=== PATIENT | male | born 1960 | race African-American/Black ===

== ENCOUNTER 2019-03-19 11:25 | Inpatient (IN) | payer MEDICARE, OTHER ==
[~2019-03-19] VITALS: Ht 170.2 cm; Wt 66.7 kg
[2019-03-19] MEDS ORDERED: KETOROLAC 30MG/ML VIAL IV STA (11:44)
[2019-03-19] MEDS ORDERED: SODIUM CHLORIDE 0.9% 1,000 ML IV ONE (11:44)
[2019-03-19] MEDS ORDERED: FAMOTIDINE 20MG/2ML VIAL IV STA (11:44)
[2019-03-19] MEDS ORDERED: ONDANSETRON HCL 4MG/2ML INJ IV STA (11:44)
[2019-03-19 12:19] LABS: BASOPHILS % 0.5 % (0.0-2.0); EOSINOPHILS % 0.6 % (0.0-5.0); HEMATOCRIT. 44.1 % (42.0-52.0); HEMOGLOBIN. 14.8 g/dL (14.0-18.0); MEAN CORPUSCULAR VOLUME 89.2 fL (80.0-94.0); MEAN PLATELET VOLUME 8.8 fl (7.4-10.4); MONOCYTES % 3.6 % (2.0-8.0); NEUTROPHILS % 84.3 % (40.0-76.0); PLATELET 200 x1000/uL (130-400); RED BLOOD CELL COUNT 4.95 mill/uL (4.7-6.1); RED CELL DISTRIBUTION WIDTH 13.4 % (11.6-14.6)
[2019-03-19 12:24] LABS: CHLORIDE 110 mEq/L (98-107)
[2019-03-19 12:25] LABS: PROTHROMBIN TIME 10.7 sec (9.6-11.0)
[2019-03-19] MEDS: SODIUM CHLORIDE 0.9% 1,000 ML IV ONE ×2 (14:32→15:17)
[2019-03-19 15:00] LABS: CLARITY URINE CLEAR (CLEAR); COLOR URINE YELLOW (YELLOW); KETONES URINE NEGATIVE (NEGATIVE); LEUKOCYTE ESTERASE URINE NEGATIVE (NEGATIVE); NITRITE URINE POSITIVE (NEGATIVE); OCCULT BLOOD URINE NEGATIVE (NEGATIVE); PROTEIN URINE 1+ (NEGATIVE)
[2019-03-19] MEDS ORDERED: LEVOFLOXACIN 500MG PREMIX 100 ML IV ONE (15:45)
[2019-03-19] MEDS ORDERED: METRONIDAZOLE 500 MG PREMIX 100 ML IV ONE (15:45)
[2019-03-19] MEDS ORDERED: HYDRALAZINE 20MG/ML VIAL IV PRN (16:45)
[2019-03-19] MEDS ORDERED: KETOROLAC 30MG/ML VIAL IV PRN (16:45)
[2019-03-19] MEDS ORDERED: ONDANSETRON HCL 4MG/2ML INJ IV PRN (16:45)
[2019-03-19] MEDS ORDERED: BLOOD SUGAR DIAGNOSTIC STRIP TEST SCH (17:00)
[2019-03-19] MEDS ORDERED: DEXTROSE 50% WATER 50ML SYRINGE IV PRN (17:00)
[2019-03-19] MEDS ORDERED: ENALAPRIL 1.25 MG in DEXTROSE 5% WATER 49 ML IV PRN (18:45)
[2019-03-19 19:57] VITALS: BP 159/94
[2019-03-19 20:00] VITALS: BP 159/94
[2019-03-19] MEDS: INSULIN LISPRO 100 UNITS/ML SUBCUT SCH (21:00)
[2019-03-19] MEDS: BLOOD SUGAR DIAGNOSTIC STRIP TEST SCH (21:57)
[2019-03-19] MEDS: SODIUM CHLORIDE 0.9% 1,000 ML IV SCH (21:57)
[2019-03-19] MEDS: FAMOTIDINE 20MG/2ML VIAL IV SCH (22:02)
[2019-03-20] VITALS: BP 155/83
[2019-03-20] MEDS ORDERED: HYDRALAZINE 20MG/ML VIAL IV SCH
[2019-03-20] MEDS: HYDRALAZINE 20 MG in SODIUM CHLORIDE 0.9% 49 ML IV SCH ×2 (00:20→05:46)
[2019-03-20] MEDS: METRONIDAZOLE 500 MG PREMIX 100 ML IV SCH ×4 (01:25→22:00)
[2019-03-20 04:00] VITALS: BP 135/81
[2019-03-20] MEDS ORDERED: HYDR100T26 MT (04:54)
[2019-03-20] MEDS ORDERED: INSU100I28 SQ (04:54)
[2019-03-20] MEDS ORDERED: CARV25TA47 MT (04:54)
[2019-03-20] MEDS ORDERED: FURO20TA4 MT (04:54)
[2019-03-20] MEDS ORDERED: AMLO5TAB88 MT (04:54)
[2019-03-20] MEDS ORDERED: INSLIS SUBCUT (04:54)
[2019-03-20] MEDS ORDERED: ATOR40TA70 MT (04:54)
[2019-03-20] MEDS: BLOOD SUGAR DIAGNOSTIC STRIP TEST SCH ×4 (07:20→21:37)
[2019-03-20] MEDS: INSULIN LISPRO 100 UNITS/ML SUBCUT SCH ×4 (07:20→21:00)
[2019-03-20 07:21] LABS: BASOPHILS % 0.5 % (0.0-2.0); EOSINOPHILS % 1.8 % (0.0-5.0); HEMATOCRIT. 42.1 % (42.0-52.0); HEMOGLOBIN. 14.3 g/dL (14.0-18.0); LYMPHOCYTES % 24.2 % (20.0-50.0); MEAN CORPUSCULAR HEMOGLOBIN 30.3 pg (28.0-32.0); MEAN CORPUSCULAR VOLUME 88.9 fL (80.0-94.0); MONOCYTES % 6.5 % (2.0-8.0); PLATELET 199 x1000/uL (130-400); RED BLOOD CELL COUNT 4.73 mill/uL (4.7-6.1); RED CELL DISTRIBUTION WIDTH 13.4 % (11.6-14.6)
[2019-03-20 08:00] VITALS: BP 136/78
[2019-03-20 08:36] LABS: CHLORIDE 113 mEq/L (98-107)
[2019-03-20 08:44] LABS: LDL CHOLESTEROL 55 mg/dL (5-100)
[2019-03-20 08:45] LABS: HDL CHOLESTEROL 59 mg/dL (40-59)
[2019-03-20] MEDS: SODIUM CHLORIDE 0.9% 1,000 ML IV SCH (09:00)
[2019-03-20] MEDS: FAMOTIDINE 20MG/2ML VIAL IV SCH ×2 (09:05→21:59)
[2019-03-20] MEDS ORDERED: DEXT 5%/0.45% NACL KCL 30MEQ/L 1,000 ML IV SCH (11:00)
[2019-03-20 12:00] VITALS: BP 155/94
[2019-03-20] MEDS ORDERED: LEVOFLOXACIN 500MG PREMIX 100 ML IV SCH ×2 (13:00→16:00)
[2019-03-20] MEDS: HYDRALAZINE HCL 25MG TABLET PO SCH ×2 (14:18→22:00)
[2019-03-20 16:00] VITALS: BP 151/96
[2019-03-20 20:00] VITALS: BP 140/66
[2019-03-21] VITALS: BP 151/83
[2019-03-21 04:00] VITALS: BP 148/80
[2019-03-21] MEDS: HYDRALAZINE HCL 25MG TABLET PO SCH (05:43)
[2019-03-21] MEDS: METRONIDAZOLE 500 MG PREMIX 100 ML IV SCH (05:44)
[2019-03-21 06:46] LABS: BASOPHILS % 0.6 % (0.0-2.0); EOSINOPHILS % 2.5 % (0.0-5.0); HEMATOCRIT. 41.1 % (42.0-52.0); HEMOGLOBIN. 14.1 g/dL (14.0-18.0); MEAN CORPUSCULAR HEMOGLOBIN 30.5 pg (28.0-32.0); MEAN CORPUSCULAR VOLUME 88.8 fL (80.0-94.0); MONOCYTES % 6.1 % (2.0-8.0); NEUTROPHILS % 59.8 % (40.0-76.0); PLATELET 194 x1000/uL (130-400); RED BLOOD CELL COUNT 4.62 mill/uL (4.7-6.1); RED CELL DISTRIBUTION WIDTH 13.2 % (11.6-14.6)
[2019-03-21 07:25] LABS: CHLORIDE 108 mEq/L (98-107)
[2019-03-21 08:00] VITALS: BP 126/86
[2019-03-21] MEDS: BLOOD SUGAR DIAGNOSTIC STRIP TEST SCH ×4 (08:16→20:05)
[2019-03-21] MEDS: LOSARTAN POTASSIUM 50 MG TABLET PO SCH (08:35)
[2019-03-21] MEDS: INSULIN LISPRO 100 UNITS/ML SUBCUT SCH ×4 (09:03→20:09)
[2019-03-21] MEDS: INSULIN GLARGINE UD 100 UNITS/ML SYR SUBCUT SCH ×2 (11:03→21:07)
[2019-03-21 12:00] VITALS: BP 161/99
[2019-03-21 16:00] VITALS: BP 145/85
[2019-03-21] MEDS: HYDRALAZINE HCL 50MG TABLET PO SCH (17:33)
[2019-03-21 20:00] VITALS: BP 187/103
[2019-03-21] MEDS: CLONIDINE 0.1MG TABLET PO PRN (21:15)
[2019-03-21] MEDS ORDERED: LOSARTAN POTASSIUM 50 MG TABLET PO NR (22:00)
[2019-03-22] VITALS: BP 143/70
[2019-03-22 04:00] VITALS: BP 137/92
[2019-03-22] MEDS: BLOOD SUGAR DIAGNOSTIC STRIP TEST SCH ×2 (06:32→12:28)
[2019-03-22 07:47] LABS: BASOPHILS % 0.5 % (0.0-2.0); EOSINOPHILS % 3.3 % (0.0-5.0); HEMATOCRIT. 41.1 % (42.0-52.0); HEMOGLOBIN. 14.1 g/dL (14.0-18.0); LYMPHOCYTES % 36.8 % (20.0-50.0); MEAN CORPUSCULAR HEMOGLOBIN 30.5 pg (28.0-32.0); MEAN CORPUSCULAR VOLUME 88.7 fL (80.0-94.0); MEAN PLATELET VOLUME 8.8 fl (7.4-10.4); MONOCYTES % 7.8 % (2.0-8.0); NEUTROPHILS % 51.6 % (40.0-76.0); PLATELET 195 x1000/uL (130-400); RED BLOOD CELL COUNT 4.63 mill/uL (4.7-6.1); RED CELL DISTRIBUTION WIDTH 13.4 % (11.6-14.6)
[2019-03-22] MEDS: INSULIN LISPRO 100 UNITS/ML SUBCUT SCH ×2 (07:50→12:28)
[2019-03-22 07:58] LABS: CHLORIDE 108 mEq/L (98-107)
[2019-03-22 08:00] VITALS: BP 157/93
[2019-03-22] MEDS ORDERED: CARVEDILOL 25MG TABLET PO NR (09:15)
[2019-03-22] MEDS: HYDRALAZINE HCL 50MG TABLET PO SCH (09:18)
[2019-03-22] MEDS: LOSARTAN POTASSIUM 50 MG TABLET PO SCH (09:21)
[2019-03-22] MEDS ORDERED: INSULIN GLARGINE UD 100 UNITS/ML SYR SUBCUT SCH (10:00)
[2019-03-22] MEDS ORDERED: INSU100I28 SQ (11:32)
[2019-03-22 11:35] VITALS: BP 148/98
[2019-03-22] MEDS: CLONIDINE 0.1MG TABLET PO PRN (11:47)
[2019-03-22 12:11] VITALS: BP 150/95
[2019-03-22 15:49] VITALS: BP 122/86
== END 2019-03-22 16:55 | disposition home or self-care (01) | DRG 392 ==
LOC: ER 11:25 → 6EST 15:38 → ENRESERV 17:33 → 6EST 21:30
PROVIDERS: ADMIT Internal Medicine Critical Care Medicine; ATTEND Internal Medicine Critical Care Medicine
DX: K52.9 Noninfective gastroenteritis and colitis, unspecified (principal); R65.10 Systemic inflammatory response syndrome (SIRS) of non-infectious origin without acute organ dysfunction; I69.354 Hemiplegia and hemiparesis following cerebral infarction affecting left non-dominant side; K57.90 Diverticulosis of intestine, part unspecified, without perforation or abscess without bleeding; E11.65 Type 2 diabetes mellitus with hyperglycemia; I11.9 Hypertensive heart disease without heart failure; E78.5 Hyperlipidemia, unspecified; Z79.4 Long term (current) use of insulin; Z87.891 Personal history of nicotine dependence; Z91.81 History of falling; Z79.899 Other long term (current) drug therapy
CPT/HCPCS: 36415; 74176; 80048; 80061; 82962; 83036; 96374; 96375; 97112; 97116; 97162; 99285; J0360; J1815; J1885; J1956; J2405; J3480; J3490; J7030

== ENCOUNTER 2022-06-27 01:26 | Inpatient (IN) | payer BC, MEDICAID, MEDICARE, OTHER ==
[2022-06-27] VITALS (8 sets, daily range): BP systolic 141–169; BP diastolic 91–114
[~2022-06-27] VITALS: Ht 170.2 cm; Wt 68.1 kg
[~2022-06-27 01:26] MED LIST: CARV25TA47 MT; HYDR100T26 MT; INSLIS SUBCUT; INSU100I28 SQ
[2022-06-27 02:05] LABS: BASOPHILS % 0.5 % (0.0-2.0); EOSINOPHILS % 2.7 % (0.0-5.0); HEMATOCRIT. 50.7 % (42.0-52.0); HEMOGLOBIN. 16.6 g/dL (14.0-18.0); LYMPHOCYTES % 25.9 % (20.0-50.0); MEAN CORPUSCULAR HEMOGLOBIN 28.6 pg (28.0-32.0); MEAN PLATELET VOLUME 8.4 fl (7.4-10.4); MONOCYTES % 6.1 % (2.0-8.0); NEUTROPHILS % 64.8 % (40.0-76.0); PLATELET 346 x1000/uL (130-400); RED BLOOD CELL COUNT 5.82 mill/uL (4.7-6.1); RED CELL DISTRIBUTION WIDTH 13.5 % (11.6-14.6)
[2022-06-27] MEDS ORDERED: IOHEXOL-350 100 ML BOTTLE ONE (02:14)
[2022-06-27 02:15] LABS: CHLORIDE 101 mEq/L (98-107)
[2022-06-27] MEDS ORDERED: NICARDIPINE 50 MG in SODIUM CHLORIDE 0.9% 230 ML IV STA (02:15)
[2022-06-27] MEDS ORDERED: HYDRALAZINE 20MG/ML VIAL IV ONE (02:15)
[2022-06-27] MEDS ORDERED: LEVETIRACETAM 500MG PREMIX 100 ML IV ONE (02:15)
[2022-06-27] MEDS ORDERED: DEXAMETHASONE 10 MG/ML VIAL IV ONE (02:15)
[2022-06-27 02:20] LABS: CLARITY URINE CLEAR (CLEAR); COLOR URINE YELLOW (YELLOW); KETONES URINE NEGATIVE (NEGATIVE); LEUKOCYTE ESTERASE URINE NEGATIVE (NEGATIVE); NITRITE URINE NEGATIVE (NEGATIVE); OCCULT BLOOD URINE 1+ (NEGATIVE); PH URINE 7.5 (4.5-8.0); PROTEIN URINE 2+ (NEGATIVE); SPECIFIC GRAVITY URINE 1.011 (1.005-1.030); UROBILINOGEN URINE 0.2 E.U./dL (0.2-1.0)
[2022-06-27 02:24] LABS: ETHANOL BLOOD < 10 mg/dL
[2022-06-27] MEDS ORDERED: NICARDIPINE 50 MG in SODIUM CHLORIDE 0.9% 230 ML IV NR (02:30)
[2022-06-27] MEDS ORDERED: LORAZEPAM 2MG/ML CPJ IV ONE (02:30)
[2022-06-27 02:34] LABS: *AMPHETAMINES SCREEN URINE NEGATIVE (NEGATIVE); *BARBITURATES SCREEN URINE NEGATIVE (NEGATIVE); *BENZODIAZEPINES SCREEN URINE NEGATIVE (NEGATIVE); *COCAINE SCREEN URINE NEGATIVE (NEGATIVE); CANNABINOID URINE SCREEN NEGATIVE (NEGATIVE); METHADONE URINE SCREEN NEGATIVE (NEGATIVE); OPIATES URINE SCREEN NEGATIVE (NEGATIVE); PHENCYCLIDINE URINE SCREEN NEGATIVE (NEGATIVE)
[2022-06-27] MEDS ORDERED: INSULIN REGULAR (HUMULIN R) 300UNITS/3ML VIAL SUBCUT NR (03:45)
[2022-06-27] MEDS ORDERED: CARVEDILOL 12.5MG TABLET PO NR (06:45)
[2022-06-27] MEDS ORDERED: IPRATROPIUM/ALBUTEROL 0.5-3(2.5)MG/3ML NEB HHN PRN (06:45)
[2022-06-27] MEDS ORDERED: NA PHOS,M-B/NA PHOS,DI-BA ENEMA 118ML PR PRN (06:45)
[2022-06-27] MEDS ORDERED: ONDANSETRON HCL 4MG/2ML INJ IV PRN (06:45)
[2022-06-27] MEDS ORDERED: ENOXAPARIN 40MG/0.4ML SYR SUBCUT SCH (09:00)
[2022-06-27] MEDS ORDERED: LEVETIRACETAM 500MG PREMIX 100 ML IV SCH (09:00)
[2022-06-27] MEDS: HYDRALAZINE HCL 100MG TABLET PO SCH ×3 (09:08→17:50)
[2022-06-27] MEDS: INSULIN GLARGINE 100 UNITS/ML SUBCUT SCH ×2 (11:44→21:32)
[2022-06-27] MEDS ORDERED: AMLO2.5T45 MT (12:46)
[2022-06-27] MEDS ORDERED: LOSA25TA26 MT (12:47)
[2022-06-27] MEDS: NITROGLYCERIN OINT 1GM/INCH UDPKT TD SCH ×2 (14:00→21:29)
[2022-06-27] MEDS ORDERED: DEXTROSE 50% WATER 50ML SYRINGE IV PRN (16:30)
[2022-06-27] MEDS: INSULIN LISPRO 100 UNITS/ML SUBCUT SCH ×2 (18:04→21:33)
[2022-06-27] MEDS: BLOOD SUGAR DIAGNOSTIC STRIP TEST SCH ×2 (18:06→21:22)
[2022-06-27] MEDS ORDERED: AMLO10TA80 PO (18:59)
[2022-06-27] MEDS ORDERED: INSU100I28 SQ (19:00)
[2022-06-27] MEDS ORDERED: ISOS20TA57 PO (19:01)
[2022-06-27] MEDS ORDERED: CLON0.2T PO (19:01)
[2022-06-27] MEDS ORDERED: ATOR-2 PO (19:02)
[2022-06-27] MEDS: LEVETIRACETAM 500MG PREMIX 100 ML IV SCH (21:17)
[2022-06-28] VITALS (45 sets, daily range): BP systolic 107–185; BP diastolic 58–106
[2022-06-28] MEDS: NITROGLYCERIN OINT 1GM/INCH UDPKT TD SCH ×3 (06:15→21:30)
[2022-06-28] MEDS: BLOOD SUGAR DIAGNOSTIC STRIP TEST SCH ×3 (06:18→20:33)
[2022-06-28] MEDS ORDERED: GADOTERATE MEGLUMINE 5 MMOL/10 ML VIAL IV ONE (08:22)
[2022-06-28] MEDS: LEVETIRACETAM 500MG PREMIX 100 ML IV SCH ×2 (08:46→20:33)
[2022-06-28] MEDS: DOCUSATE SODIUM 100MG CAPSULE PO PRN (08:46)
[2022-06-28] MEDS: HYDRALAZINE HCL 100MG TABLET PO SCH ×2 (08:47→16:14)
[2022-06-28] MEDS: INSULIN GLARGINE 100 UNITS/ML SUBCUT SCH ×2 (08:59→21:33)
[2022-06-28] MEDS: INSULIN LISPRO 100 UNITS/ML SUBCUT SCH ×3 (08:59→20:39)
[2022-06-28] MEDS ORDERED: ISOSORBIDE MONONITRATE 20MG TABLET PO SCH (09:00)
[2022-06-28 10:14] LABS: BASOPHILS % 0.8 % (0.0-2.0); HEMATOCRIT. 41.5 % (42.0-52.0); HEMOGLOBIN. 13.9 g/dL (14.0-18.0); LYMPHOCYTES % 9.5 % (20.0-50.0); MEAN CORPUSCULAR HEMOGLOBIN 28.8 pg (28.0-32.0); MEAN PLATELET VOLUME 8.9 fl (7.4-10.4); MONOCYTES % 3.7 % (2.0-8.0); PLATELET 346 x1000/uL (130-400); RED BLOOD CELL COUNT 4.83 mill/uL (4.7-6.1); RED CELL DISTRIBUTION WIDTH 13.4 % (11.6-14.6)
[2022-06-28 10:18] LABS: CHLORIDE 107 mEq/L (98-107)
[2022-06-28] MEDS ORDERED: BACITRACIN 15GM TUBE TOP ONE (11:38)
[2022-06-28] MEDS ORDERED: THROMBIN (BOVINE) 5000 UNITS/VIAL TOP ONE (11:38)
[2022-06-28] MEDS ORDERED: GENTAMICIN SULF 40MG/ML 2ML VIAL ONE (11:39)
[2022-06-28] MEDS ORDERED: LIDOCAINE 2%/EPINEPHRINE 1:200,000 20 ML VIAL INJ ONE (11:39)
[2022-06-28] MEDS ORDERED: VANCOMYCIN 1.25GM PMX (XELLIA) 250 ML IV SCH (12:30)
[2022-06-28] MEDS ORDERED: PROPOFOL 200MG/20ML VIAL IV ONE (13:16)
[2022-06-28] MEDS ORDERED: FENTANYL CITRATE/PF 50MCG/ML 2ML VIAL ONE (13:17)
[2022-06-28] MEDS ORDERED: HYDROMORPHONE HCL/PF 2MG/ML CPJ ONE (13:21)
[2022-06-28] MEDS ORDERED: ROCURONIUM BROMIDE 10MG/ML VIAL 5ML IV ONE (13:22)
[2022-06-28] MEDS ORDERED: MANNITOL 20% 0 ML IV ONE (13:23)
[2022-06-28] MEDS ORDERED: NITROGLYCERIN 50MG PREMIX 0 ML IV ONE (13:46)
[2022-06-28] MEDS ORDERED: FENTANYL CITRATE/PF 50MCG/ML 5ML VIAL ONE (14:00)
[2022-06-28] MEDS ORDERED: GLYCOPYRROLATE 0.2 MG/ML 2ML VIAL ONE (14:35)
[2022-06-28] MEDS ORDERED: HYDRALAZINE 20MG/ML VIAL ONE (14:51)
[2022-06-28] MEDS ORDERED: DEXT 5%/LACTATED RINGERS 1,000 ML IV SCH (15:00)
[2022-06-28] MEDS ORDERED: EPHEDRINE SULFATE 50MG/ML VIAL ONE (15:26)
[2022-06-28] MEDS: PIPERACILLIN/TAZOBACTAM 3.375 G in DEXTROSE 5% WATER 50 ML IV SCH ×2 (15:44→21:29)
[2022-06-28] MEDS: NICARDIPINE 100 MG in SODIUM CHLORIDE 0.9% 60 ML IV PRN (16:25)
[2022-06-28] MEDS: MORPHINE SULFATE 2 MG/ML CPJ (NOT FOR IM USE) IV PRN (16:34)
[2022-06-28] MEDS: CEFAZOLIN 1000MG PREMIX 50 ML IV SCH (17:13)
[2022-06-28] MEDS: DEXAMETHASONE 4MG/ML 1ML VIAL IV SCH ×2 (17:13→23:15)
[2022-06-28] MEDS: PHENYTOIN SODIUM 100MG/2ML VIAL IV SCH (21:30)
[2022-06-28] MEDS ORDERED: VANCOMYCIN 750MG PMX (XELLIA) 150 ML IV SCH (23:00)
[2022-06-28] MEDS: VANCOMYCIN 750MG PMX (XELLIA) 150 ML IV SCH (23:15)
[2022-06-29] VITALS (102 sets, daily range): BP systolic 114–257; BP diastolic 59–171
[2022-06-29] MEDS: CEFAZOLIN 1000MG PREMIX 50 ML IV SCH ×3 (01:19→18:24)
[2022-06-29] MEDS: DEXAMETHASONE 4MG/ML 1ML VIAL IV SCH ×4 (05:44→23:14)
[2022-06-29] MEDS: PIPERACILLIN/TAZOBACTAM 3.375 G in DEXTROSE 5% WATER 50 ML IV SCH ×3 (05:44→21:31)
[2022-06-29] MEDS: PHENYTOIN SODIUM 100MG/2ML VIAL IV SCH ×3 (05:44→21:31)
[2022-06-29] MEDS: NITROGLYCERIN OINT 1GM/INCH UDPKT TD SCH ×3 (05:44→21:32)
[2022-06-29 05:48] LABS: HEMATOCRIT. 41.2 % (42.0-52.0); MEAN CORPUSCULAR VOLUME 85.7 fL (80.0-94.0); MEAN PLATELET VOLUME 8.6 fl (7.4-10.4); PLATELET 381 x1000/uL (130-400); RED BLOOD CELL COUNT 4.81 mill/uL (4.7-6.1); RED CELL DISTRIBUTION WIDTH 13.9 % (11.6-14.6)
[2022-06-29] MEDS: BLOOD SUGAR DIAGNOSTIC STRIP TEST SCH ×4 (06:07→21:16)
[2022-06-29] MEDS: INSULIN LISPRO 100 UNITS/ML SUBCUT SCH ×4 (06:10→21:37)
[2022-06-29 06:35] LABS: CHLORIDE 107 mEq/L (98-107)
[2022-06-29 07:02] LABS: PLATELET ESTIMATE NORMAL
[2022-06-29] MEDS: HYDRALAZINE HCL 100MG TABLET PO SCH ×3 (09:00→17:00)
[2022-06-29] MEDS: LEVETIRACETAM 500MG PREMIX 100 ML IV SCH ×2 (09:22→19:56)
[2022-06-29] MEDS: MORPHINE SULFATE 2 MG/ML CPJ (NOT FOR IM USE) IV PRN (09:23)
[2022-06-29] MEDS: NICARDIPINE 100 MG in SODIUM CHLORIDE 0.9% 60 ML IV PRN ×2 (09:55→21:31)
[2022-06-29] MEDS: VANCOMYCIN 750MG PMX (XELLIA) 150 ML IV SCH ×2 (10:56→20:04)
[2022-06-29] MEDS: INSULIN GLARGINE 100 UNITS/ML SUBCUT SCH ×2 (11:08→21:37)
[2022-06-29 12:21] LABS: VITAMIN B12 SERUM 1045 pg/mL (211-911)
[2022-06-30] VITALS (79 sets, daily range): BP systolic 119–184; BP diastolic 21–106
[2022-06-30] MEDS: HYDRALAZINE 20MG/ML VIAL IV PRN ×3 (00:22→18:19)
[2022-06-30] MEDS: MORPHINE SULFATE 2 MG/ML CPJ (NOT FOR IM USE) IV PRN ×5 (02:00→18:19)
[2022-06-30] MEDS: NITROGLYCERIN OINT 1GM/INCH UDPKT TD SCH ×3 (05:22→21:20)
[2022-06-30] MEDS: DEXAMETHASONE 4MG/ML 1ML VIAL IV SCH ×3 (05:22→17:09)
[2022-06-30] MEDS: PIPERACILLIN/TAZOBACTAM 3.375 G in DEXTROSE 5% WATER 50 ML IV SCH ×3 (05:22→21:21)
[2022-06-30] MEDS: PHENYTOIN SODIUM 100MG/2ML VIAL IV SCH ×3 (05:22→21:20)
[2022-06-30] MEDS: BLOOD SUGAR DIAGNOSTIC STRIP TEST SCH ×4 (05:45→20:09)
[2022-06-30 06:21] LABS: HEMATOCRIT. 38.2 % (42.0-52.0); HEMOGLOBIN. 12.8 g/dL (14.0-18.0); MEAN CORPUSCULAR HEMOGLOBIN 28.8 pg (28.0-32.0); MEAN PLATELET VOLUME 8.5 fl (7.4-10.4); PLATELET 341 x1000/uL (130-400); RED BLOOD CELL COUNT 4.44 mill/uL (4.7-6.1); RED CELL DISTRIBUTION WIDTH 13.7 % (11.6-14.6)
[2022-06-30 06:42] LABS: CHLORIDE 110 mEq/L (98-107)
[2022-06-30] MEDS: INSULIN LISPRO 100 UNITS/ML SUBCUT SCH ×4 (06:57→20:09)
[2022-06-30] MEDS: HYDRALAZINE HCL 100MG TABLET PO SCH ×3 (08:40→17:00)
[2022-06-30] MEDS: VANCOMYCIN 750MG PMX (XELLIA) 150 ML IV SCH (08:40)
[2022-06-30] MEDS: LEVETIRACETAM 500MG PREMIX 100 ML IV SCH (08:40)
[2022-06-30] MEDS: INSULIN GLARGINE 100 UNITS/ML SUBCUT SCH ×2 (09:34→21:21)
[2022-06-30 12:30] LABS: PLATELET ESTIMATE NORMAL
[2022-06-30] MEDS ORDERED: LIDOCAINE HCL 1% 30ML VIAL (10MG/ML) ONE (12:30)
[2022-06-30] MEDS ORDERED: LEVETIRACETAM 500 MG in SODIUM CHLORIDE 0.9% 100 ML IV SCH (19:30)
[2022-06-30] MEDS ORDERED: LEVETIRACETAM 500MG PREMIX 100 ML IV NR (21:00)
[2022-06-30] MEDS ORDERED: VANCOMYCIN 1GM PMX (XELLIA) 200 ML IV SCH (22:00)
[2022-07-01] VITALS (54 sets, daily range): BP systolic 99–175; BP diastolic 40–112
[2022-07-01] MEDS: DEXAMETHASONE 4MG/ML 1ML VIAL IV SCH ×2 (00:21→05:15)
[2022-07-01] MEDS: HYDRALAZINE 20MG/ML VIAL IV PRN ×2 (05:14→17:00)
[2022-07-01] MEDS: PHENYTOIN SODIUM 100MG/2ML VIAL IV SCH ×3 (05:14→21:52)
[2022-07-01] MEDS: PIPERACILLIN/TAZOBACTAM 3.375 G in DEXTROSE 5% WATER 50 ML IV SCH (05:15)
[2022-07-01] MEDS: NITROGLYCERIN OINT 1GM/INCH UDPKT TD SCH ×3 (05:15→21:52)
[2022-07-01] MEDS: INSULIN LISPRO 100 UNITS/ML SUBCUT SCH ×4 (05:36→21:53)
[2022-07-01] MEDS: BLOOD SUGAR DIAGNOSTIC STRIP TEST SCH ×4 (05:36→21:24)
[2022-07-01] MEDS: HYDRALAZINE HCL 100MG TABLET PO SCH ×3 (08:41→21:52)
[2022-07-01] MEDS: INSULIN GLARGINE 100 UNITS/ML SUBCUT SCH ×2 (08:47→21:51)
[2022-07-01] MEDS: LEVETIRACETAM 1000MG PREMIX 100 ML IV SCH ×2 (08:51→21:50)
[2022-07-01] MEDS: MORPHINE SULFATE 2 MG/ML CPJ (NOT FOR IM USE) IV PRN (08:54)
[2022-07-01] MEDS ORDERED: LEVETIRACETAM 1,000 MG in SODIUM CHLORIDE 0.9% 100 ML IV SCH (09:00)
[2022-07-01] MEDS ORDERED: PHENYTOIN SODIUM 500 MG in SODIUM CHLORIDE 0.9% 50 ML IV SCH (11:00)
[2022-07-01] MEDS: AMLODIPINE 10MG TABLET PO SCH (11:18)
[2022-07-01 12:15] LABS: HEMATOCRIT. 40.4 % (42.0-52.0); HEMOGLOBIN. 13.4 g/dL (14.0-18.0); MEAN CORPUSCULAR HEMOGLOBIN 28.7 pg (28.0-32.0); MEAN CORPUSCULAR VOLUME 86.7 fL (80.0-94.0); MEAN PLATELET VOLUME 7.9 fl (7.4-10.4); PLATELET 338 x1000/uL (130-400); RED BLOOD CELL COUNT 4.66 mill/uL (4.7-6.1); RED CELL DISTRIBUTION WIDTH 13.8 % (11.6-14.6)
[2022-07-01 12:28] LABS: CHLORIDE 113 mEq/L (98-107)
[2022-07-01] MEDS: ACETAMINOPHEN 325MG TABLET PO PRN (20:50)
[2022-07-02] VITALS: BP 165/98
[2022-07-02 02:29] LABS: PLATELET ESTIMATE NORMAL
[2022-07-02 04:00] VITALS: BP 147/73
[2022-07-02] MEDS: HYDRALAZINE HCL 100MG TABLET PO SCH ×3 (05:45→21:36)
[2022-07-02] MEDS: PHENYTOIN SODIUM 100MG/2ML VIAL IV SCH ×3 (05:45→21:36)
[2022-07-02] MEDS: NITROGLYCERIN OINT 1GM/INCH UDPKT TD SCH ×3 (05:46→21:35)
[2022-07-02] MEDS: BLOOD SUGAR DIAGNOSTIC STRIP TEST SCH ×4 (06:00→21:36)
[2022-07-02] MEDS: INSULIN LISPRO 100 UNITS/ML SUBCUT SCH ×4 (06:00→21:41)
[2022-07-02 08:00] VITALS: BP 156/92
[2022-07-02] MEDS: LEVETIRACETAM 1000MG PREMIX 100 ML IV SCH ×2 (09:01→21:34)
[2022-07-02] MEDS: AMLODIPINE 10MG TABLET PO SCH (09:02)
[2022-07-02] MEDS: INSULIN GLARGINE 100 UNITS/ML SUBCUT SCH ×2 (09:07→21:42)
[2022-07-02] MEDS: ACETAMINOPHEN 325MG TABLET PO PRN (11:54)
[2022-07-02] MEDS: HYDRALAZINE 20MG/ML VIAL IV PRN (11:58)
[2022-07-02 12:00] VITALS: BP 161/106
[2022-07-02] MEDS: LOSARTAN POTASSIUM 100 MG TABLET PO SCH (12:49)
[2022-07-02 14:28] LABS: BASOPHILS % 0.3 % (0.0-2.0); EOSINOPHILS % 2.4 % (0.0-5.0); HEMATOCRIT. 46.3 % (42.0-52.0); HEMOGLOBIN. 15.5 g/dL (14.0-18.0); LYMPHOCYTES % 19.4 % (20.0-50.0); MEAN CORPUSCULAR HEMOGLOBIN 28.7 pg (28.0-32.0); MEAN PLATELET VOLUME 7.9 fl (7.4-10.4); MONOCYTES % 9.9 % (2.0-8.0); PLATELET 352 x1000/uL (130-400); RED BLOOD CELL COUNT 5.39 mill/uL (4.7-6.1); RED CELL DISTRIBUTION WIDTH 13.7 % (11.6-14.6)
[2022-07-02 14:33] LABS: CHLORIDE 106 mEq/L (98-107)
[2022-07-02] MEDS ORDERED: CARVEDILOL 12.5MG TABLET PO SCH (15:00)
[2022-07-02 16:00] VITALS: BP 155/97
[2022-07-02] MEDS ORDERED: LEVE1000 MT (18:47)
[2022-07-02] MEDS ORDERED: PHEN100C4 MT (18:47)
[2022-07-02 20:00] VITALS: BP 172/103
[2022-07-03] VITALS: BP 157/103
[2022-07-03] MEDS: CARVEDILOL 12.5MG TABLET PO SCH ×2 (00:36→09:29)
[2022-07-03 04:00] VITALS: BP 137/83
[2022-07-03] MEDS: NITROGLYCERIN OINT 1GM/INCH UDPKT TD SCH ×2 (05:34→13:21)
[2022-07-03] MEDS: HYDRALAZINE HCL 100MG TABLET PO SCH ×2 (05:38→14:39)
[2022-07-03] MEDS: PHENYTOIN SODIUM 100MG/2ML VIAL IV SCH ×2 (05:45→13:21)
[2022-07-03] MEDS: BLOOD SUGAR DIAGNOSTIC STRIP TEST SCH ×3 (06:46→17:18)
[2022-07-03] MEDS: INSULIN LISPRO 100 UNITS/ML SUBCUT SCH ×3 (08:02→17:18)
[2022-07-03 08:29] VITALS: BP 173/100
[2022-07-03] MEDS: LOSARTAN POTASSIUM 100 MG TABLET PO SCH (09:28)
[2022-07-03] MEDS: AMLODIPINE 10MG TABLET PO SCH (09:28)
[2022-07-03] MEDS: LEVETIRACETAM 1000MG PREMIX 100 ML IV SCH (09:28)
[2022-07-03 10:50] VITALS: BP 153/99
[2022-07-03 11:30] VITALS: BP 176/101
[2022-07-03] MEDS: HYDRALAZINE 20MG/ML VIAL IV PRN (11:37)
[2022-07-03] MEDS: ACETAMINOPHEN 325MG TABLET PO PRN (11:37)
[2022-07-03] MEDS: INSULIN GLARGINE 100 UNITS/ML SUBCUT SCH (11:39)
[2022-07-03] MEDS ORDERED: NIFE-32 MT (12:53)
[2022-07-03] MEDS: CLONIDINE 0.2MG TABLET PO SCH ×2 (13:21→18:09)
[2022-07-03] MEDS: DOCUSATE SODIUM 100MG CAPSULE PO PRN (13:32)
[2022-07-03 16:00] VITALS: BP 140/82
[2022-07-03] MEDS ORDERED: PHENYTOIN SODIUM EXTENDED 100MG CAPSULE PO SCH (21:00)
[2022-07-04] MEDS ORDERED: PHENYTOIN SODIUM EXTENDED 100MG CAPSULE PO SCH (06:00)
[2022-07-04] MEDS ORDERED: LEVETIRACETAM 500MG TABLET PO SCH (09:00)
== END 2022-07-03 19:15 | disposition home or self-care (01) | DRG 25 ==
LOC: ER 01:39 → MICUSO 04:36 → ENRESERV 07:46 → EDBEDREQSVC 10:29 → ENRESERV 11:18 → 5EST 12:38 → MICUSO 06-28 15:32 → 7WST 07-01 13:35
PROVIDERS: ADMIT Internal Medicine Pulmonary Disease; ATTEND Internal Medicine Pulmonary Disease
PROC: 00C40ZZ Extirpation of Matter from Intracranial Subdural Space, Open Approach (ICD-10-PCS; principal; 2022-06-28)
PROC: 0NR10JZ Replacement of Frontal Bone with Synthetic Substitute, Open Approach (ICD-10-PCS; 2022-06-28)
PROC: 00H032Z Insertion of Monitoring Device into Brain, Percutaneous Approach (ICD-10-PCS; 2022-06-28)
PROC: 4A103BD Monitoring of Intracranial Pressure, Percutaneous Approach (ICD-10-PCS; 2022-06-28)
PROC: 4A00X4Z Measurement of Central Nervous Electrical Activity, External Approach (ICD-10-PCS; 2022-06-28)
PROC: 05HY33Z Insertion of Infusion Device into Upper Vein, Percutaneous Approach (ICD-10-PCS; 2022-06-30)
DX: I62.03 Nontraumatic chronic subdural hemorrhage (principal); I21.4 Non-ST elevation (NSTEMI) myocardial infarction; E87.1 Hypo-osmolality and hyponatremia; I16.1 Hypertensive emergency; G93.40 Encephalopathy, unspecified; I69.354 Hemiplegia and hemiparesis following cerebral infarction affecting left non-dominant side; Z20.822 Contact with and (suspected) exposure to COVID-19; E11.65 Type 2 diabetes mellitus with hyperglycemia; I10 Essential (primary) hypertension; D72.829 Elevated white blood cell count, unspecified; R56.9 Unspecified convulsions
CPT/HCPCS: 36415; 36573; 70496; 70498; 70551; 70552; 71045; 80048; 80053; 80061; 80185; 80202; 80305; 80320; 81003; 82010; 82310; 82607; 82962; 83036; 83735; 84443; 84484; 85025; 87070; 87075; 87426; 92523; 92610; 93005; 95816; 97162; 97166; 97535; 99291; A9577; C1713; C1725; J0360; J0690; J1100; J1165; J1170; J1580; J1650; J1815; J1953; J2060; J2270; J2405; J2543; J2704; J3010; J3370; J3490; J7050; J7060; J7120; Q9967; G0480